=== PATIENT | female | born 1940 | race Two or more races ===

== ENCOUNTER 2019-12-23 04:00 | Emergency (ER) | payer SELFPAY ==
[~2019-12-23] VITALS: Ht 157.5 cm; Wt 75.0 kg
--- NOTE | 2019-12-23 04:46 | NUR ---
pt to ct
[2019-12-23] MEDS ORDERED: HYDROcodone/APAP 5/325 TABLET PO ONE (05:00)
[2019-12-23] MEDS ORDERED: HYDROcodone/APAP 5/325 TABLET ONE (05:05)
[2019-12-23 07:33] VITALS: BP 137/73
== END 2019-12-23 07:48 | disposition home or self-care (01) ==
LOC: ED 06:01
DX: S00.12XA Contusion of left eyelid and periocular area, initial encounter (principal); S80.812A Abrasion, left lower leg, initial encounter; M54.2 Cervicalgia; R51 Headache; E11.9 Type 2 diabetes mellitus without complications; W10.9XXA Fall (on) (from) unspecified stairs and steps, initial encounter; Y93.01 Activity, walking, marching and hiking; Y92.59 Other trade areas as the place of occurrence of the external cause; Y99.8 Other external cause status
CPT/HCPCS: 70450; 70486; 72125; 99285